=== PATIENT | male | born 1995 | race Caucasian/White ===

== ENCOUNTER 2018-06-14 11:08 | Emergency (ER) | payer BC ==
[2018-06-14] MEDS ORDERED: Proparacaine 0.5% Opth 15 ML BOT ONE (11:54)
[2018-06-14] MEDS ORDERED: Fluorescein Opthalmic Strip ONE ×2 (11:55→12:21)
== END 2018-06-14 13:30 | disposition home or self-care (01) ==
LOC: ERS 11:08
DX: H16.133 Photokeratitis, bilateral (principal); J45.909 Unspecified asthma, uncomplicated; F17.210 Nicotine dependence, cigarettes, uncomplicated
CPT/HCPCS: 99283